=== PATIENT | female | born 1995 | race Caucasian/White ===

== ENCOUNTER 2020-11-04 17:05 | Emergency (ER) | payer SELFPAY ==
[~2020-11-04] VITALS: Ht 165.1 cm; Wt 77.1 kg
[2020-11-04 17:25] VITALS: BP 112/71
[2020-11-04] MEDS ORDERED: ACETAMINOPHEN ES 500 MG TABLET ONE (17:38)
[2020-11-04] MEDS ORDERED: ACETAMINOPHEN ES 500 MG TABLET PO ONE (18:00)
[2020-11-04] MEDS ORDERED: HYDR-4275 PO (18:13)
[2020-11-04] MEDS ORDERED: HYDR-3972 PO (18:19)
[2020-11-04] MEDS ORDERED: ONDANSETRON 4 MG TAB.RAPDIS ONE (18:28)
[2020-11-04] MEDS ORDERED: MORPHINE SULFATE INJ 4 MG/ML DISP.SYRIN ONE (18:28)
[2020-11-04] MEDS ORDERED: ONDANSETRON 4 MG TAB.RAPDIS SL ONE (18:30)
[2020-11-04] MEDS ORDERED: MORPHINE SULFATE INJ 2 MG/ML DISP.SYRIN IM ONE (18:30)
[2020-11-04] MEDS ORDERED: MORPHINE SULFATE INJ 2 MG/ML DISP.SYRIN IV ONE (18:30)
== END 2020-11-04 18:50 | disposition home or self-care (01) ==
LOC: ER 17:15
DX: S13.4XXA Sprain of ligaments of cervical spine, initial encounter (principal); S46.812A Strain of other muscles, fascia and tendons at shoulder and upper arm level, left arm, initial encounter; J45.909 Unspecified asthma, uncomplicated; Z88.6 Allergy status to analgesic agent; V49.49XA Driver injured in collision with other motor vehicles in traffic accident, initial encounter; Y93.89 Activity, other specified; Y92.413 State road as the place of occurrence of the external cause; Y99.8 Other external cause status
CPT/HCPCS: 72040; 73030; 96372; 99284; J2270; Q0162